=== PATIENT | female | born 1970 | race Caucasian/White ===

== ENCOUNTER 2020-09-21 17:34 | Emergency (ER) | payer BC ==
--- NOTE | 2020-09-21 18:49 | EDM.PDOC ---
ED HPI GENERAL MEDICAL PROBLEM - General Chief Complaint: Lower Extremity Injury/Pain Stated Complaint: SWELLING IN BOTH LEGS Time Seen by Provider: 09/21/20 17:58 Source of Information: Reports: Patient History Limitations: Reports: No Limitations - History of Present Illness INITIAL COMMENTS - FREE TEXT/NARRATIVE: 49-year-old female presents the emergency department with complaints of swelling to her bilateral lower legs, feet and ankles. She states this is new and she has never had issues with swelling before. She said she noted it yesterday and then went to bed last night she states that when she woke up this morning they were less swollen however still some swelling noted. She states she is also had a little increase in shortness of breath over the past 2 days. Of note, the patient is a 1-1/2 pack a day smoker x35 years. The patient denies any cardiac history however she states that she did have a stroke in her 20s. She states the reasoning was due to her being on control and smoking. She does not have any real residual effects from this. 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 Her primary care provider is Arlin Hummel. Left Ankle Pain Score (Numeric/FACES): 5 - Related Data Allergies Allergy/AdvReac Type Severity Reaction Status Date / Time doxycycline Allergy Hives Verified 09/21/20 17:53 Home Meds: Home Meds Albuterol [Proventil Neb Soln] 1 dose NEB ASDIRECTED PRN 09/21/20 [History] Albuterol [Proventil Neb Soln] 2 puff IH Q4H PRN 09/21/20 [History] Omeprazole 40 mg PO DAILY 09/21/20 [History] Spironolactone [Aldactone] 100 mg PO DAILY 09/21/20 [History] Past Medical History Respiratory History: Reports: Asthma Gastrointestinal History: Reports: GERD - Past Surgical History GI Surgical History: Reports: Cholecystectomy Female Surgical History: Reports: Hysterectomy Social & Family History - Tobacco Use Tobacco Use Status *Q: Current Every Day Tobacco User Years of Tobacco use: 35 Packs/Tins Daily: 1.5 - Recreational Drug Use Recreational Drug Use: No Review of Systems - Review of Systems Review Of Systems: Comprehensive ROS is negative, except as noted in HPI. ED EXAM, GENERAL - Physical Exam Exam: See Below Exam Limited By: No Limitations General Appearance: Alert, WD/WN, No Apparent Distress Ears: Normal External Exam, Hearing Grossly Normal Nose: Normal Inspection Throat/Mouth: Normal Inspection, Normal Lips, Normal Voice, No Airway Compromise Head: Atraumatic Neck: Normal Inspection, Supple Respiratory/Chest: No Respiratory Distress, Lungs Clear, Normal Breath Sounds, No Accessory Muscle Use, Chest Non-Tender Cardiovascular: Normal Peripheral Pulses, Regular Rate, Rhythm, No Murmur. No: No Edema (Trace of edema noted to bilateral ankles) Peripheral Pulses: 2+: Dorsalis Pedis (L), Dorsalis Pedis (R) GI/Abdominal: Normal Bowel Sounds, Soft, Non-Tender, No Distention (Female) Exam: Deferred Rectal (Female) Exam: Deferred Back Exam: Normal Inspection Extremities: Normal Inspection, Normal Range of Motion, Non-Tender, Normal Capillary Refill, Pedal Edema (Trace of edema noted to bilateral ankles.) Neurological: Alert, Oriented, Normal Cognition Psychiatric: Normal Affect, Normal Mood Skin Exam: Warm, Dry, Intact, Normal Color, No Rash Lymphatic: No Adenopathy Course - Vital Signs Text/Narrative:: Patient presents with swelling to her bilateral lower legs feet and ankles that started about 2 days ago. She does not have a history of congestive heart failure. Upon exam patient does have a trace of her bilateral ankles. She states that her calves feel tight. She also states she has had slight increase in shortness of breath over the past couple of days. Discussion with the patient and her she states that for the past couple of days she has consumed beers mixed with tomato juice and has had a saltier diet. She states this is out of the ordinary for her. I have ordered labs to include a CBC, CMP and a proBNP. I have also ordered a chest x-ray. Last Recorded V/S: Last Vital Signs Temp 97.5 F 09/21/20 17:51 Pulse 78 09/21/20 17:51 Resp 16 09/21/20 17:51 BP 118/55 L 09/21/20 17:51 Pulse Ox 93 L 09/21/20 17:51 - Orders/Labs/Meds Orders: Active Orders 24 hr Category Date Time Status Chest 1V Frontal [CR] Stat Exams 09/21/20 18:17 Taken Labs: Laboratory Tests 09/21/20 09/21/2009/21/21 Range/Units 18:30 18:30 18:30 WBC 10.59 H (3.98-10.04) K/mm3 RBC 4.49 (3.98-5.22) M/mm3 Hgb 13.9 (11.2-15.7) gm/dl Hct 40.5 (34.1-44.9) % MCV 90.2 (79.4-94.8) fl MCH 31.0 (25.6-32.2) pg MCHC 34.3 (32.2-35.5) g/dl RDW Std Deviation 41.5 (36.4-46.3) fL Plt Count 205 (182-369) K/mm3 MPV 9.3 L (9.4-12.3) fl Neut % (Auto) 71.7 H (34.0-71.1) % Lymph % (Auto) 17.8 L (19.3-51.7) % [place] % (Auto) 7.3 (4.7-12.5) % Eos % (Auto) 2.5 (0.7-5.8) Baso % (Auto) 0.3 (0.1-1.2) % Neut # (Auto) 7.60 H (1.56-6.13) K/mm3 Lymph # (Auto) 1.89 (1.18-3.74) K/mm3 [place] # (Auto) 0.77 H (0.24-0.36) K/mm3 Eos # (Auto) 0.26 (0.04-0.36) K/mm3 Baso # (Auto) 0.03 (0.01-0.08) K/mm3 Manual Slide Review Normal smear Sodium 141 (136-145) mEq/L Potassium 3.7 (3.5-5.1) mEq/L Chloride 106 (98-107) mEq/L Carbon Dioxide 24 (21-32) mEq/L Anion Gap 14.7 (5-15) BUN 9 (7-18) mg/dL Creatinine 0.9 (0.55-1.02) mg/dL Est Cr Clr Drug Dosing 64.58 mL/min Estimated GFR (MDRD) > 60 (>60) mL/min BUN/Creatinine Ratio 10.0 L (14-18) Glucose 146 H (70-99) mg/dL Calcium 8.5 (8.5-10.1) mg/dL Magnesium 1.8 (1.8-2.4) mg/dL Total Bilirubin 0.3 (0.2-1.0) mg/dL AST 16 (15-37) U/L ALT 32 (14-59) U/L Alkaline Phosphatase 81 (46-116) U/L NT-Pro-B Natriuret Pep 109 (0-125) pg/mL Total Protein 6.8 (6.4-8.2) g/dl Albumin 3.5 (3.4-5.0) g/dl Globulin 3.3 gm/dL Albumin/Globulin Ratio 1.1 (1-2) - Re-Assessments/Exams Free Text/Narrative Re-Assessment/Exam: 09/21/20 19:26 Nothing acute is appreciated on portable view of the chest. Official radiology report is pending. 09/21/20 19:28 Hematology reveals a WBC of 10.59, hemoglobin 13.9, hematocrit 40.5, platelet count 205 Chemistry reveals a sodium of 141, potassium 3.7, chloride 106, anion gap 14.7, BUN 9, creatinine 0.9, glucose 146, magnesium 1.8, proBNP 109 Patient will be discharged home. Because of her swelling in her lower ext remities is likely due to her increased consumption of salt over the weekend and being on her feet more. Discussed this with the patient and she understands. She will follow up with her primary care provider this week. Departure - Departure Time of Disposition: 19:29 Disposition: Home, Self-Care 01 Condition: Good Clinical Impression: Swelling of both lower extremities - Discharge Information Referrals: Antonina Hummel NP [Primary Care Provider] - Forms: ED Department Discharge Additional Instructions: You are seen in the emergency department today with complaints of swelling to your lower legs ankles and feet. Labs were completed and these were essentially unremarkable. Chest x-ray was essentially unremarkable as well. Swelling is likely due to increased salt consumption over the weekend. Recommend low-salt diet and drink plenty of water. Would like you to follow-up with your primary care provider sometime this week. An echocardiogram would likely be helpful. Sepsis Event Note (ED) - Evaluation Sepsis Screening Result: No Definite Risk - Focused Exam Vital Signs: Vital Signs Temp Pulse Resp BP Pulse Ox 09/21/20 17:51 97.5 F 78 16 118/55 L 93 L - My Orders Last 24 Hours: My Active Orders 09/21/20 18:17 Chest 1V Frontal [CR] Stat - Assessment/Plan Last 24 Hours: My Active Orders 09/21/20 18:17 Chest 1V Frontal [CR] Stat
--- NOTE | 2020-09-22 12:18 | CR ---
Chest: Portable view of the chest was obtained. Comparison: Prior chest x-ray of 12/17/15. Heart size and mediastinum are normal. Lungs are clear with no acute parenchymal change. No acute osseous abnormality is appreciated. Impression: 1. Nothing acute is identified on portable chest x-ray. Diagnostic code #1
== END 2020-09-21 19:40 | disposition home or self-care (01) ==
LOC: JD.ED 17:34
DX: R22.41 Localized swelling, mass and lump, right lower limb (principal); R22.42 Localized swelling, mass and lump, left lower limb; J45.909 Unspecified asthma, uncomplicated; K21.9 Gastro-esophageal reflux disease without esophagitis; F17.200 Nicotine dependence, unspecified, uncomplicated; Z79.899 Other long term (current) drug therapy; Z88.1 Allergy status to other antibiotic agents; Z86.73 Personal history of transient ischemic attack (TIA), and cerebral infarction without residual deficits
CPT/HCPCS: 36415; 71045; 71045-26; 80053; 83735; 83880; 85025; 99283; 99283-25

== ENCOUNTER 2021-10-20 23:12 | Emergency (ER) | payer BC | END 2021-10-21 00:35 | LOC: JD.ED 23:12 | DX: Z53.21 Procedure and treatment not carried out due to patient leaving prior to being seen by health care provider (principal) ==